=== PATIENT | male | born 1995 | race Caucasian/White ===

== ENCOUNTER 2016-03-19 17:38 | Emergency (ER) | payer BC ==
[~2016-03-19] VITALS: Ht 182.9 cm; Wt 86.4 kg
[2016-03-19 17:41] VITALS: BP 146/70; TEMP 98.4
[2016-03-19 18:30] VITALS: PULSE 87
== END 2016-03-19 18:30 | disposition home or self-care (01) ==
LOC: COL.ER 17:38
DX: S61.411A Laceration without foreign body of right hand, initial encounter (principal); W26.0XXA Contact with knife, initial encounter; Y93.G1 Activity, food preparation and clean up; Y92.000 Kitchen of unspecified non-institutional (private) residence as the place of occurrence of the external cause; Z23 Encounter for immunization

== ENCOUNTER 2016-03-29 13:22 | Emergency (ER) | payer BC ==
[2016-03-29 13:27] VITALS: BP 142/87; PULSE 67; TEMP 97.5
== END 2016-03-29 13:40 | disposition home or self-care (01) ==
LOC: COL.ER 13:22
DX: Z48.02 Encounter for removal of sutures (principal)

== ENCOUNTER 2017-06-23 14:39 | Emergency (ER) | payer BC ==
[~2017-06-23] VITALS: Ht 180.3 cm; Wt 88.2 kg
[2017-06-23 14:40] VITALS: BP 142/85; TEMP 98.7
[2017-06-23 15:26] VITALS: PULSE 82
== END 2017-06-23 15:27 | disposition home or self-care (01) ==
LOC: COL.ER 14:39
DX: M79.675 Pain in left toe(s) (principal)